=== PATIENT | female | born 1960 | race Caucasian/White ===

== ENCOUNTER → 2023-05-09 17:27 | Outpatient (REF) | payer OTHER, SELFPAY | LOC: MRI 17:27 | PROVIDERS: ATTENDING PHYSICIAN Internal Medicine Transplant Hepatology; FAMILY PHYSICIAN Family Medicine | DX: K74.69 Other cirrhosis of liver (principal) | CPT/HCPCS: 74183; A9581 ==

== ENCOUNTER → 2023-06-09 14:47 | Outpatient (REF) | payer OTHER, SELFPAY | LOC: DHCBC HW 14:47 | PROVIDERS: ATTENDING PHYSICIAN Internal Medicine; FAMILY PHYSICIAN Family Medicine | DX: R94.31 Abnormal electrocardiogram [ECG] [EKG] (principal) | CPT/HCPCS: 93306 ==

== ENCOUNTER → 2023-07-05 11:03 | Outpatient (REF) | payer OTHER, SELFPAY | LOC: DHCBC/DCA 11:03 | PROVIDERS: ATTENDING PHYSICIAN Internal Medicine; FAMILY PHYSICIAN Family Medicine | DX: R94.31 Abnormal electrocardiogram [ECG] [EKG] (principal) | CPT/HCPCS: 78452; 93017; A9500 ==

== ENCOUNTER → 2023-11-30 13:17 | Outpatient (REF) | payer OTHER, SELFPAY | LOC: HWWDC 13:17 | PROVIDERS: ATTENDING PHYSICIAN Obstetrics & Gynecology Gynecology; FAMILY PHYSICIAN Family Medicine | DX: Z12.31 Encounter for screening mammogram for malignant neoplasm of breast (principal) | CPT/HCPCS: 77063; 77067 ==

== ENCOUNTER → 2024-02-05 17:58 | Outpatient (REF) | payer OTHER, SELFPAY | LOC: MRI 17:58 | PROVIDERS: ATTENDING PHYSICIAN Internal Medicine Transplant Hepatology; FAMILY PHYSICIAN Family Medicine | DX: K74.69 Other cirrhosis of liver (principal) | CPT/HCPCS: 74183; A9581 ==

== ENCOUNTER 2024-06-17 06:19 | Day surgery (SDC) | payer OTHER, SELFPAY | END 2024-06-17 13:30 | disposition home or self-care (01) | LOC: GI 06:19 | PROVIDERS: ATTENDING PHYSICIAN Internal Medicine Gastroenterology | DX: K74.60 Unspecified cirrhosis of liver (principal) | CPT/HCPCS: 43239; 88305 ==

== ENCOUNTER 2024-12-02 09:44 | Inpatient (IN) | payer OTHER, SELFPAY ==
[2024-11-30 21:59] VITALS: BP 129/68
[2024-11-30 22:58] VITALS: BMI 19.9
[2024-11-30 23:04] VITALS: BP 109/59
[2024-11-30 23:11] LABS: Hematocrit 39.1 % (37.0-47.0); Hemoglobin 13.1 g/dL (12.0-16.0); Mean Corp Hgb Conc. 33.5 g/dL (33.0-37.0); Mean Corpuscular Volume 89.1 fL (81.0-99.0); Nucleated Red Blood Cells % 0 %; Platelet Count 173 10^3/uL (130-400); Red Cell Dist. Width 13.7 % (11.5-14.5)
[2024-11-30 23:29] LABS: ALT (SGPT) 18 U/L (0-35); Albumin 4.0 g/dl (3.5-5.0); Alkaline Phosphatase 87 U/L (38-126); Calcium 8.8 mg/dl (8.4-10.2); Carbon Dioxide 24 mmol/L (22-30); Chloride 110 mmol/L (98-107); Estimated Creatinine Clearance 57 ml/min; Glucose 102 mg/dl (70-99); Potassium 3.8 mmol/L (3.5-5.1); Sodium 140 mmol/L (135-145); eGFR > 60.00
[2024-11-30 23:39] LABS: AST (SGOT) 30 U/L (14-36); Blood Urea Nitrogen 17 mg/dl (7-17); Total Protein 7.0 g/dl (6.3-8.2)
[2024-11-30 23:45] LABS: Troponin I 0.017 ng/ml
[2024-12-01] VITALS (10 sets, daily range): BP systolic 91–112; BP diastolic 44–68; BMI 19.7
--- NOTE | 2024-12-01 00:35 | ED.GENMED ---
History of Present Illness
<JENNIFER Flores - Last Filed: 12/01/24 23:18>
General
Chief Complaint: Chest Pain
Source: patient
Exam Limitations: none
Time Seen by Provider: 11/30/24 23:22
Nursing documentation reviewed up to this point in time: agreed with
History of Present Illness
History of Present Illness:
Patient is a 64-year-old male past medical history of lung cancer with segmentectomy in 2013, liver failure, cirrhosis nonalcohol related(this occurred after surgery) presents for sudden shortness of breath and chest pain while sitting on her sofa
around 6 PM. She also had some abdominal pain and vomiting at that time. She does feel little short of breath and has pain with deep breath.
Past History
<JENNIFER Flores - Last Filed: 12/01/24 23:18>
Past History
ED Past Medical History: Cancer (Lung cancer, status post right upper lobe resection April 2013) and Other (Hepatitis)
ED Past Surgical History: Orthopedic and Other (Breast biopsy)
Social History
Tobacco: Former smoker
Alcohol: None
Drug: None
Personal:
Living: with family
Employment: Employed
Family History
Family History: Hypertension
Phy Exam
<JENNIFER Flores - Last Filed: 12/01/24 23:18>
General Physical Exam
General Presentation: no apparent distress
General age: appears stated age
General Skin: warm and dry
General Habitus: normal
General Hydration: appears well hydrated
Cardiovascular Exam
Cardiovascular Exam: regular rate/rhythm, no murmur and normal peripheral pulses
Pulmonary Exam
Pulmonary Exam: lungs clear and no respiratory distress
Neurological Exam
Neurological Exam: alert and oriented x3
Musculoskeletal Exam
Musculoskeletal Exam: full ROM
Skin Exam
Skin Exam: normal color and warm/dry
Psychiatric Exam
Psychiatric Exam: normal mood/affect
Scores
<JENNIFER Flores - Last Filed: 12/01/24 23:18>
Heart Score for Chest Pain Patients
STEMI patient?: Not applicable
Course
<JENNIFER Flores - Last Filed: 12/01/24 23:18>
Orders/Labs/Results
Orders:
Orders
11/30/24 22:03
EKG [Electrocardiogram (*1)] Urgent
Reason for Study: Chest Pain
EKG- Treatment ONCE
11/30/24 22:56
Cardiac Monitoring- Treatment ONCE
IV Insert/Care/Rem.- Treatment PRN
Chest [CR Chest - 2 Views ] Urgent
Comment:
Reason For Exam: chest pain/sob
O2 Therapy [RESP] Urgent
Titrate/Wean O2 to maintain O2 sat greater than (%): 90
Special Instructions: Maintain sats >/=90%
Pulse Ox/spot Check [RESP] Urgent
Quantity: 1
Special Instructions: ON ROOM AIR
11/30/24 22:59
Complete Blood Count/With Diff Urgent
Comprehensive Metabolic Panel Urgent
Lipase Urgent
Comment: ADD ON
Troponin I Urgent
12/01/24 00:45
CT Chest PE Study Urgent
Comment:
Reason For Exam: sob
0.9% Sodium Chloride 1000 ml [Nss] 1,000 ml IV BOLUS
12/01/24 01:00
EKG- Treatment ONCE
COVID-19 Antigen Urgent
Source: Nasal Swab
Influenza A+B Rapid Molecular Urgent
NEYDA Source: Nasal Swab
Specimen Description:
12/01/24 01:59
NT-proBNP Urgent
Comment: ADD ON
Troponin I Urgent
12/01/24 02:00
Electrocardiogram (*1) Urgent
Reason for Study: Chest Pain
12/01/24 03:34
Ketorolac [Toradol] 15 mg IV NOW STA
12/01/24 04:11
Admit/Transfer Patient As Directed
Co-Sign Provider:
Level of Care: Observation services
Assign to:: Telemetry
Physician / Group: Earle
Diagnosis: Hypoxemia
Reason for Telemetry: Chest Pain syndromes
Date to Stop Telemetry: 12/03/24
Time to Stop Telemetry: 11:00
12/01/24 04:12
Code Status As Directed
Resuscitation Status: Full Code
PRN Pain Medication Management As Directed
May give lesser potent ordered pain med per pt: Yes
preference::
Protocol:: Medication orders for pain may be administered in a
manner that supports deferring to patient preference
when the pt is:
- Requesting an ordered lesser potent pain medication.
Least to most potent pain medications are defined
as: acetaminophen < NSAID < tramadol < opioids
(morphine, oxycodone, hydromorphone).
- Requesting a lesser dose of the same medication IF
ORDERED.
- Requesting a less intrusive route of administration
if both routes are prescribed by the provider (PO <
IV).
12/01/24 04:17
CT Head W/o Iv Contrast Urgent
Comment:
Reason For Exam: Headache, Epistaxis, N/V
12/01/24 Breakfast
Regular
At Your Request: Full Participation
Does patient need a safe tray?: No
12/01/24 06:01
Acetaminophen [Tylenol] 650 mg PO Q4HPRN PRN
Albuterol Nebs [Ventolin Nebules] 2.5 mg INH R Q4HPRN PRN
Ketorolac [Toradol] 10 mg IV Q6HPRN PRN
12/01/24 06:01
Activity As Directed
Activity Level: Ambulate
EKG with chest pain [ECG as needed] As Directed
ECG as needed for:: Chest Pain
I/O [Intake/ Output] As Directed
Frequency: Per unit guidelines
Pneumatic Compression Sleeves As Directed
Type: Knee high
Vital Signs As Directed
Frequency: Per unit guidelines
Weight As Directed
Frequency: Daily
Oxygen Therapy [O2 Therapy] [RESP] Routine
Titrate/Wean O2 to maintain O2 sat greater than (%): 94
DX Deep Vein Thrombosis Video Routine
12/01/24 07:47
Glycohemoglobin (HgbA1c) Routine
12/02/24 06:00
Basic Metabolic Panel IN AM
Cardiovascular Evaluation IN AM
Complete Blood Count/No Diff IN AM
Troponin I IN AM
12/03/24 11:00
DC Protocol for Telemetry ONCE
Abnormal Lab Results
11/30/24
22:59
Absolute Lymphs (auto) 0.3 L 10^3/uL
(1.2-3.4)
Absolute Monos (auto) 0.0 L 10^3/uL
(0.1-0.6)
Neutrophils % 93.9 H %
(42.2-75.2)
Lymphocytes % 5.0 L %
(20.5-51.1)
Monocytes % 0.6 L %
(1.7-9.3)
Chloride 110 H mmol/L
(98-107)
Glucose 102 H mg/dl
(70-99)
11/30/24 22:59
11/30/24 22:59
Vital Signs
Initial and Last Documented VS:
Initial Vital Signs
Temp Pulse Resp BP Pulse Ox
97.9 F 101 20 129/68 93
11/30/24 21:59 11/30/24 21:59 11/30/24 21:59 11/30/24 21:59 11/30/24 21:59
Last Documented Vital Signs
Temp Pulse Resp BP Pulse Ox
98.3 F 92 20 109/58 95
12/01/24 19:32 12/01/24 19:32 12/01/24 19:32 12/01/24 19:32 12/01/24 19:32
Clinical Cytogeneticist consulted with Physician
Clinical Cytogeneticist consulted with physician?: Yes
Name of Physician Consulted: leslie
<Rip Tena, DO - Last Filed: 12/01/24 01:05>
Orders/Labs/Results
Orders:
Orders
11/30/24 22:03
EKG [Electrocardiogram (*1)] Urgent
Reason for Study: Chest Pain
EKG- Treatment ONCE
11/30/24 22:56
Cardiac Monitoring- Treatment ONCE
IV Insert/Care/Rem.- Treatment PRN
Chest [CR Chest - 2 Views ] Urgent
Comment:
Reason For Exam: chest pain/sob
O2 Therapy [RESP] Urgent
Titrate/Wean O2 to maintain O2 sat greater than (%): 90
Special Instructions: Maintain sats >/=90%
Pulse Ox/spot Check [RESP] Urgent
Quantity: 1
Special Instructions: ON ROOM AIR
11/30/24 22:59
Complete Blood Count/With Diff Urgent
Comprehensive Metabolic Panel Urgent
Lipase Urgent
Comment: ADD ON
Troponin I Urgent
12/01/24 00:45
CT Chest PE Study Urgent
Comment:
Reason For Exam: sob
0.9% Sodium Chloride 1000 ml [Nss] 1,000 ml IV BOLUS
12/01/24 01:00
EKG- Treatment ONCE
COVID-19 Antigen Urgent
Source: Nasal Swab
Influenza A+B Rapid Molecular Urgent
NEYDA Source: Nasal Swab
Specimen Description:
12/01/24 01:59
NT-proBNP Urgent
Comment: ADD ON
Troponin I Urgent
12/01/24 02:00
Electrocardiogram (*1) Urgent
Reason for Study: Chest Pain
12/01/24 03:34
Ketorolac [Toradol] 15 mg IV NOW STA
12/01/24 04:11
Admit/Transfer Patient As Directed
Co-Sign Provider:
Level of Care: Observation services
Assign to:: Telemetry
Physician / Group: Earle
Diagnosis: Hypoxemia
Reason for Telemetry: Chest Pain syndromes
Date to Stop Telemetry: 12/03/24
Time to Stop Telemetry: 11:00
12/01/24 04:12
Code Status As Directed
Resuscitation Status: Full Code
PRN Pain Medication Management As Directed
May give lesser potent ordered pain med per pt: Yes
preference::
Protocol:: Medication orders for pain may be administered in a
manner that supports deferring to patient preference
when the pt is:
- Requesting an ordered lesser potent pain medication.
Least to most potent pain medications are defined
as: acetaminophen < NSAID < tramadol < opioids
(morphine, oxycodone, hydromorphone).
- Requesting a lesser dose of the same medication IF
ORDERED.
- Requesting a less intrusive route of administration
if both routes are prescribed by the provider (PO <
IV).
12/01/24 04:17
CT Head W/o Iv Contrast Urgent
Comment:
Reason For Exam: Headache, Epistaxis, N/V
12/01/24 Breakfast
Regular
At Your Request: Full Participation
Does patient need a safe tray?: No
12/01/24 06:01
Acetaminophen [Tylenol] 650 mg PO Q4HPRN PRN
Albuterol Nebs [Ventolin Nebules] 2.5 mg INH R Q4HPRN PRN
Ketorolac [Toradol] 10 mg IV Q6HPRN PRN
12/01/24 06:01
Activity As Directed
Activity Level: Ambulate
EKG with chest pain [ECG as needed] As Directed
ECG as needed for:: Chest Pain
I/O [Intake/ Output] As Directed
Frequency: Per unit guidelines
Pneumatic Compression Sleeves As Directed
Type: Knee high
Vital Signs As Directed
Frequency: Per unit guidelines
Weight As Directed
Frequency: Daily
Oxygen Therapy [O2 Therapy] [RESP] Routine
Titrate/Wean O2 to maintain O2 sat greater than (%): 94
DX Deep Vein Thrombosis Video Routine
12/01/24 07:47
Glycohemoglobin (HgbA1c) Routine
12/02/24 06:00
Basic Metabolic Panel IN AM
Cardiovascular Evaluation IN AM
Complete Blood Count/No Diff IN AM
Troponin I IN AM
12/03/24 11:00
DC Protocol for Telemetry ONCE
Abnormal Lab Results
11/30/24
22:59
Absolute Lymphs (auto) 0.3 L 10^3/uL
(1.2-3.4)
Absolute Monos (auto) 0.0 L 10^3/uL
(0.1-0.6)
Neutrophils % 93.9 H %
(42.2-75.2)
Lymphocytes % 5.0 L %
(20.5-51.1)
Monocytes % 0.6 L %
(1.7-9.3)
Chloride 110 H mmol/L
(98-107)
Glucose 102 H mg/dl
(70-99)
11/30/24 22:59
11/30/24 22:59
Vital Signs
Initial and Last Documented VS:
Initial Vital Signs
Temp Pulse Resp BP Pulse Ox
97.9 F 101 20 129/68 93
11/30/24 21:59 11/30/24 21:59 11/30/24 21:59 11/30/24 21:59 11/30/24 21:59
Last Documented Vital Signs
Temp Pulse Resp BP Pulse Ox
98.3 F 92 20 109/58 95
12/01/24 19:32 12/01/24 19:32 12/01/24 19:32 12/01/24 19:32 12/01/24 19:32
<JENNIFER Flores - Last Filed: 12/01/24 23:18>
MDM/Problems Addressed
Differential Diagnosis Includes:
Not limited to pneumonia, PE, ACS
MDM/Problems Addressed:
As documented patient is a 64-year-old female with prior history of a lung cancer surgically removed previously presents for evaluation. Patient reports she was sitting and felt suddenly short of breath around 1800 and then had a little nausea
abdominal pain. Patient presents to the ER awake alert no acute distress minimally hypoxic however very well-appearing lungs are clear unremarkable labs. With prior history of cancer and shortness of breath CAT scan was done which was negative for
PE patient was monitored here and repeat troponin unremarkable. EKG with nonspecific ST segment changes.
On reexam patient continues to feel pain with deep breath, hypoxic as low as 89% on room air Case reviewed with ED physician would recommend admission will give Toradol for discomfort and placed on nasal cannula will likely need further evaluation
Chronic conditions affecting care:
History of lung cancer
<JENNIFER Flores - Last Filed: 12/01/24 23:18>
*Radiology
Radiology exam reviewed: radiology read reviewed
*Pulse Oximetry
SaO2: 89
Oxygen Mode of Delivery: Room air
Patient hypoxic: yes
*Critical Care Note
Total Time (30-74mins, 75-104mins- exclusive of procedures): Not Applicable
ED Attending Note
<JENNIFER Flores - Last Filed: 12/01/24 23:18>
-
Portions of this chart may have been created with voice recognition software.� Occasional wrong word or��sound alike� substitutions may have occurred due to the inherent limitations of voice recognition software.
<Rip Tena DO - Last Filed: 12/01/24 01:05>
ED Attending Note
Patient seen and examined by attending physician: Yes
I performed the substantive portion of visit, reviewed & personally made and approve the management plan that is documented in note by myself or PAULINO.: Yes
ED Attending Note:
I have seen and evaluated the patient with a [id number] encounter. I have spoken to the advance practicer provider and involved in the medical history, the physical exam, medical decision making.
Evaluation and management service: agree unless noted differently below.
Results interpretation: agree unless noted differently below.
Focused HPI: 64-year-old female presenting with sudden onset of chest pain and nausea vomiting. This occurred earlier in the evening. She now has a residual headache but states majority of her symptoms have improved
Physical exam: Sitting in bed comfortably. Abdomen soft nontender. Lungs clear
Medical Decision Making: Patient incidentally found to have pulse ox of 92%. Unsure about possible aspiration versus pulmonary embolism. Given her prior history of cancer, will obtain CT PE. Will obtain 2 troponin rule out as well
Discharge Plan
Departure
Patient Disposition: Admit
Date of Disposition: 12/01/24
Time of Disposition: 03:41
Admit to: Telemetry
Admit to doctor: hospitalist
Presentation/result/management discussed w/ accepting MD/DO: Hospitalist
Patient with high blood pressure during this ER visit?: No
Condition: Fair
Covid-19: Not Applicable
Discharge Problem:
Acute dyspnea, Hypoxia
Interventions
Interventions:
*Risk Screen - Suicide Last Done: 11/30/24 21:59
*General Assessment Last Done: 11/30/24 23:09
*Neglect/Abuse Screening Last Done: 11/30/24 21:59
*ED- Fall Risk Assessment Last Done: 11/30/24 23:09
*ED COVID-19 Vaccine History Last Done: 12/01/24 06:16
*Nursing Disposition Last Done: 12/01/24 06:07
ED- Cardiac Assessment Last Done: 11/30/24 23:09
Discharge Date and Time
Discharge Date/Time: 12/01/24 06:08
[2024-12-01] MEDS: NSS 1000 IV (01:04)
--- NOTE | 2024-12-01 01:07 | EDRN ---
Dr. Tena in to talk with patient and go over plan, patient resting comfortably, sent more labs and provided warm blanket.
[2024-12-01 01:27] LABS: COVID-19 Antigen Negative (Negative)
[2024-12-01 02:44] LABS: Troponin I < 0.012 ng/ml
[2024-12-01] MEDS: TORADOL 15 MG IV (03:38)
--- NOTE | 2024-12-01 04:14 | HPS.HSE ---
Family Physician
-
Family Physician: Mika Boone
Chief Complaint
-
Chest pain, SOB
History of Present Illness
Patient is a 64y F with PMH significant for lung cancer s/p resection and EBV hepatitis / cirrhosis who presents to ED complaining of chest pain, dyspnea and N/V. Patient states that she has been feeling well lately. Today she visited with
friends with her , ate dinner and was in the hot tub. She and her returned home and were sitting on the couch when she developed sudden onset of symptoms around 6 PM. Patient reports development of pain of the entire front of her
body - chest and abdomen. She felt short of breath. She had N/V x multiple episodes. Patient reports severe headache as well. She noted pain in the back with deep breathing.
They presented to the ED for evaluation. Patient states that she developed a nose bleed while in the waiting room - this has since resolved.
Patient was given Toradol in the ED and is currently resting comfortably. She continues to complain of pain in the back with deep inspiration. She feels somewhat SOB. Headache is improved but not resolved.
Patient denies any prior h/o similar symptoms.
She does state that she started taking Azo today for symptoms of urinary burning. No other recent symptoms/ complaints prior to tonight's events.
feels well. No other known sick contacts.
Medical History
Past Medical History
Past Medical History: Reports Other
Additional Past Medical History:
EBV Hepatitis
Cirrhosis
Lung Cancer s/p Resection
DDD
Past Surgical History: Reports Other
Additional Past Surgical History:
Right Upper Lobectomy
Breast Augmentation
Lumpectomy
Foot Surgery
Social History
Tobacco: Former Smoker (Quit smoking > 10 years ago. > 30 pack years total use.)
Alcohol: None
Drug: None
Personal:
Living: With Family
Family History
Family History: Not pertinent
Allergies / Home Medications
Allergies reflects when Allergies were last updated in [employer].
Home Medications with original date entered in [employer]
Allergy/Medication List:
Allergies
Allergy/AdvReac Type Severity Reaction Status Date / Time
No Known Drug Allergies Allergy - Verified 11/30/24 21:58
cats Allergy itching, Uncoded 11/30/24 21:58
sneezing,
tightness
in chest
seasonal Allergy itching Uncoded 11/30/24 21:58
eyes,
sneezing
Home Medications
multivitamin 1 tab PO DAILY 12/01/24
omega 5-ybm-swn-fish oil 1,000 mg (120 mg-180 mg) capsule (Fish Oil) 2 cap PO DAILY 12/01/24
Review of Systems
-
History Source: Patient
A 12 point ROS was completed and negative except as noted: Yes
Constitutional: Reports Fever, Fatigue and Chills
EENT: Reports Other (Bloody nose); Denies Sore Throat
Respiratory: Reports Trouble Breathing and Other (Pleuritic pain); Denies Cough
Cardiac: Reports Chest Pain; Denies Diaphoresis, Palpitations or Syncope
Abdomen/GI: Reports Abdominal Pain, Nausea and Vomiting; Denies Diarrhea, Bloody Stools or Black Stools
: Reports Dysuria and Frequency; Denies Flank Pain or Incontinence
Musculoskeletal: Denies Joint Pain or Edema
Neurological: Reports Headache; Denies Dizzy
Psych: Denies Depression or Anxiety
Physical Exam
Vital Signs
Vital Signs
Temp Pulse Resp BP Pulse Ox
97.9 F 86 22 112/56 89
11/30/24 21:59 12/01/24 03:00 12/01/24 02:30 12/01/24 02:00 12/01/24 03:44
Physical Exam
General: Other (64y F in no acute distress.)
HEENT: Moist mucous membranes and PERRLA
Respiratory: Clear; No Wheezes, Rales or Rhonchi
Cardiac: S1/S2 and Regular Rhythm; No Murmur
GI: Soft, Non Tender, Non Distended and Normal Bowel Sounds
Musculoskeletal: No Clubbing, No Cyanosis and No Edema
Neuro: AO x 3 and Nonfocal/grossly intact
Laboratory Results
-
11/30/24 22:59
11/30/24 22:59
Laboratory Results
Total Bilirubin 0.5 mg/dl (0.2-1.3) 11/30/24 22:59
AST 30 U/L (14-36) 11/30/24:59
ALT 18 U/L (0-35) 11/30/24 22:59
Alkaline Phosphatase 87 U/L (38-126) 11/30/24 22:59
Troponin I < 0.012 ng/ml D 12/01/24 01:59
Impression/Plan
-
A/P: Patient is a 64y F with PMH significant for lung cancer s/p lobectomy who presents to ED complaining of abrupt onset of headache, N/V, SOB and chills this evening.
Acute Hypoxemic Respiratory Insufficiency
Pleurisy
Possible Viral Syndrome
- Observe overnight for further evaluation and treatment.
- Check CT head now with abrupt onset of headache, N/V, epistaxis, etc.
- Evaluation thus far including labs, imaging studies, viral assays, etc have been unremarkable.
- COVID / flu negative. CXR / CTA Chest unremarkable.
- Observe off of any abx for now.
- Follow temperature curve. Monitor for any new / recurrent symptoms.
- O2 support as needed. Nebs PRN with prior h/o smoking, lung cancer, etc.
- Toradol PRN for pleuritic pain.
- Troponin unremarkable x 2 thus far. 3rd set in AM. Doubt ACS.
EBV Hepatitis
Cirrhosis
- Not on any chronic medication / treatment.
- No active / chronic symptoms.
DVT Prophylaxis: SCDs
Code Status: Full
[2024-12-01 07:58] LABS: Lipase 108 U/L (23-300)
--- NOTE | 2024-12-01 08:25 | W.PN.HOSP.TC ---
Addendum entered and electronically signed by Johnnie Valentine MD 12/01/24 14:35:
Patient previosuly did not complain of urinary symptoms, now, apparently, confirmed to RN that she was taking Pyridium. Most likely patient with UTI. As per US - uncomplicated. Pending Ucx
Addendum entered and electronically signed by Johnnie Valentine MD 12/01/24 11:41:
#UTI
ceftriaxone pending Ucx
US renal to exclude hydronephrosis and nephrolithiasis
Original Note:
Today's Communication/Plan
-
see PN
Assessment / Plan
Assessment / Plan
64yo F with PMHx of lung nodule s/p wedge resection, possible autoimmune hepatitis vs EBV hepatitis with liver cirrhosis, family Hx of autoimmune disease came with sudden onset of SOB with chest pain later with chills and nausea and vomiting. Also
had episode of epistaxis in ED. Was placed on NC due to borderline low O2
A/P:
#Possible early sepsis with generalized symptoms, most liekly 2/2 b/l pneumonia cannot exclude UTI
CTA chest prelim without pulmonary embolism
Check UA
Check strep pneumonia and legionella urinary Ag
Plan to start Abx for CAP after UA
If persistently hypoxic - pulm consult
Check LE US for DVT
lipase WNL
check ProBNP - if elevated - Echo
#Chest pain
no TWI or ST changes on EKG
Trop unremarkable - cont trend
#Liver cirrhosis in compensation
#Hx of EBV
#Hx of autoimmune hepatitis
cont home meds
#Epistaxis
single episode
check coagulation panel
DVT ppx SCDs
Full code
I have spent at least 52min reviewing chart, rtest results, providign direct patient care
Anticipated Discharge: 24 - 48 hours
Subjective/Interval History
-
Date of Service: December 01, 2024
Objective Data
-
Labs:
Laboratory Results
11/30/24
22:59
WBC 6.6
Hgb 13.1
Hct 39.1
Plt Count 173
Sodium 140
Potassium 3.8
Chloride 110 H
Carbon Dioxide 24
BUN 17
Creatinine 1.0
Glucose 102 H
Calcium 8.8
Total Bilirubin 0.5
AST 30
ALT 18
Alkaline Phosphatase 87
Vital Signs:
Vital Signs
Temp Pulse Resp BP Pulse Ox
98.1 F 71 18 93/44 94
12/01/24 08:04 12/01/24 08:04 12/01/24 08:04 12/01/24 08:04 12/01/24 08:04
Review of Systems
-
History Source: Patient
All other systems: Reviewed and negative
Physical Exam
-
General: No Apparent Distress
HEENT: Normocephalic
Respiratory: Clear to Auscultation; Negative Wheezes or Crackles
Cardiac: Regular Rhythm
GI: Soft, Nontender and Nondistended
Musculoskeletal: No Clubbing, No Cyanosis and No Edema
Neuro: Awake, Alert, Oriented and AO x 3
Psych: Calm
[2024-12-01 08:57] LABS: INR 1.14; PT 14.9 Sec (11.4-14.6)
[2024-12-01 08:58] LABS: APTT 29.9 Sec (23.4-35.0)
[2024-12-01 09:17] LABS: Troponin I < 0.012 ng/ml
[2024-12-01 11:16] LABS: Urine Character Clear (Clear)
[2024-12-01 11:22] LABS: Urine White Cell 30-40 /HPF (0-5)
[2024-12-01 12:04] LABS: Glycohemoglobin (HgbA1c) 5.0 % (4.0-5.6)
[2024-12-01] MEDS: ROCEPHIN 1000 MG IV (12:34)
[2024-12-01] MEDS: STERILE WATER FOR INJECTION 10 ML IV (12:34)
[2024-12-01] MEDS: VIBRAMYCIN 100 MG PO ×2 (12:34→19:03)
[2024-12-01] MEDS: TORADOL 10 MG IV (14:45)
[2024-12-01] MEDS: BENADRYL 25 MG PO (23:09)
[2024-12-02 03:24] VITALS: BP 129/66
[2024-12-02] MEDS: TYLENOL 650 MG PO (05:41)
[2024-12-02 06:07] LABS: Hematocrit 31.9 % (37.0-47.0); Hemoglobin 10.9 g/dL (12.0-16.0); Mean Corp Hgb Conc. 34.2 g/dL (33.0-37.0); Mean Corpuscular Volume 88.9 fL (81.0-99.0); Platelet Count 145 10^3/uL (130-400); Red Cell Dist. Width 13.7 % (11.5-14.5)
[2024-12-02 06:30] LABS: Blood Urea Nitrogen 20 mg/dl (7-17); Calcium 8.7 mg/dl (8.4-10.2); Carbon Dioxide 22 mmol/L (22-30); Chloride 114 mmol/L (98-107); Estimated Creatinine Clearance 71 ml/min; Glucose 94 mg/dl (70-99); HDL Cholesterol 46 mg/dl; LDL Cholesterol, Calculated 106 mg/dl; Potassium 3.7 mmol/L (3.5-5.1); Sodium 139 mmol/L (135-145); Very Low Density Lipoprotein 21 mg/dl (0-30); eGFR > 60.00
[2024-12-02 06:40] LABS: Troponin I < 0.012 ng/ml
[2024-12-02] MEDS: VIBRAMYCIN 100 MG PO (07:33)
[2024-12-02] MEDS: TORADOL 10 MG IV (07:35)
[2024-12-02 08:12] VITALS: BP 129/56
--- NOTE | 2024-12-02 09:40 | W.PN.HOSP.TC ---
Today's Communication/Plan
-
Discharge today
Assessment / Plan
Assessment / Plan
64yo F with PMHx of lung nodule s/p wedge resection, possible autoimmune hepatitis vs EBV hepatitis with liver cirrhosis, family Hx of autoimmune disease came with sudden onset of SOB with chest pain later with chills and nausea and vomiting. Also
had episode of epistaxis in ED. Was placed on NC due to borderline low O2
A/P:
#Pneumonia
#Acute urinary tract infection
#Transient hypoxia
CTA chest prelim without pulmonary embolism, does show pneumonia
Urine analysis also consistent with UTI
Lower extremity Dopplers negative for DVT
Hypoxia resolved, shortness of breath resolved
Currently on IV Rocephin and doxycycline
Medically stable for discharge on cefdinir and doxycycline to complete a 7-day course
Follow-up with PCP in 1 week
#Chest pain
Suspect pleuritic
No TWI or ST changes on EKG
Serial troponins negative
#Liver cirrhosis in compensation
#Hx of EBV
#Hx of autoimmune hepatitis
Continue home medication
#Epistaxis
Single occurrence, resolved
DVT prophylaxis�SCDs
Full code
Physical Exam
General: No acute distress
HEENT: Normocephalic, Atraumatic, EOMI, MMM
Respiratory: Clear to Auscultation bilaterally
Cardiac: Normal S1/S2, Regular Rate and Rhythm
GI: Soft, Nontender, Nondistended, Normal Bowel Sounds
Extremities: No Clubbing, Cyanosis, or Edema
Neuro: Nonfocal/Grossly Intact
Psych: Calm, Cooperative
Anticipated Discharge: Today
Subjective/Interval History
-
Date of Service: December 02, 2024
Patient reports her breathing is back to normal. Her dysuria has improved dramatically. No fever, no vomiting.
Objective Data
-
Labs:
Laboratory Results
12/02/24
05:48
WBC 7.7
Hgb 10.9 L
Hct 31.9 L
Plt Count 145
Sodium 139
Potassium 3.7
Chloride 114 H
Carbon Dioxide 22
BUN 20 H
Creatinine 0.8
Glucose 94
Calcium 8.7
Vital Signs:
Vital Signs
Temp Pulse Resp BP Pulse Ox
97.6 F 73 16 129/56 93
12/02/24 08:12 12/02/24 08:12 12/02/24 08:12 12/02/24 08:12 12/02/24 08:12
I&O
12/01/24 12/02/24 12/03/24
06:59 06:59 06:59
Intake Total 1080 / 1080
Balance 1080 / 1080
[2024-12-02] MEDS: ROCEPHIN 1000 MG IV (09:44)
[2024-12-02] MEDS: STERILE WATER FOR INJECTION 10 ML IV (09:46)
[2024-12-02 11:29] VITALS: BP 111/60
--- NOTE | 2024-12-02 12:17 | W.DCSUMMARY ---
Discharge Summary
Discharge Data
Date of Admission: 12/01/24
Date of Discharge: 12/02/24
-
Pending Results: No
Hospital Course
Discharge diagnosis:
Pneumonia
Transient hypoxia
Acute urinary tract infection
Pleuritic chest pain
Liver cirrhosis and compensation
History of autoimmune hepatitis
History of Sean-Beltran virus
Chest CT:
1. Small to moderate-sized airspace consolidation in the basilar left lower lobe and mild subpleural airspace opacity in the basilar right lower lobe most suggestive of BILATERAL LOWER LOBE PNEUMONIA (left greater than right). A large amount of
dependent subsegmental atelectasis is an alternative diagnostic possibility.
2. Previous right upper lobectomy.
3. Mild bilateral hilar and mediastinal lymphadenopathy which appears new from 04/23/2018.
4. Bilateral subpectoral breast implants in place.
LE US:
No sonographic evidence for lower extremity venous thrombosis.
Hospital course:
64-year-old female with a past medical history of lung nodule s/p wedge resection, possible autoimmune hepatitis vs EBV hepatitis with liver cirrhosis, family hx of autoimmune disease who was admitted for pneumonia, transient hypoxia, and acute
urinary tract infection. Patient had a chest CT which confirmed pneumonia. She was mildly hypoxic transiently, which resolved. She also had a urinary tract infection. She was treated with IV Rocephin and oral doxycycline. Her dyspnea resolved.
Her dysuria improved. She is medically stable for discharge on cefdinir and doxycycline to complete a 7-day course. She needs to follow-up with her primary care provider in 1 week.
Disposition: Home self-care
Discharge planning: Required 36 minutes
Discharge Plan
-
Patient Disposition: Home (Routine Discharge)
Discharge Diagnosis/Procedures: Pneumonia, urinary tract infection
Condition: Good
Diet: Regular
Activity: As tolerated
Driving Restrictions: As prior to admission
Referrals:
Mika Boone DO [Family Provider, [facility]] - in one week
Prescriptions:
New
doxycycline hyclate 100 mg Capsule
100 mg PO Q12 5 Days Qty: 10 0RF
cefdinir 300 mg capsule
300 mg PO BID 5 Days Qty: 10 0RF
Continued
multivitamin Tablet
1 tab PO DAILY
omega 2-[id number]-[id number]-fish oil [Fish Oil] 1,000 (120-180) mg Capsule
2 cap PO DAILY
Discharge Orders:
Discharge Patient (As Directed); Ordered 12/02/24
Ordered By: Dwayne Freeman
Discharge Date and Time
Discharge Date/Time: 12/02/24 14:59
Print Language: FRENCH
--- NOTE | 2024-12-02 14:30 | CM ---
Received notification that patient is cleared for discharge. Met with patient to obtain information for assessment. Patient stated that she lives with her spouse in a two story home with no steps to enter. She described herself as independent with
all of her ADLs, personal care, dressing and bathing. 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 Patient drives and can get to her appointments and can do all of her own shopping. 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 She denied any DME. She has not had VN. She has not been to a SNF in the past.
Patient has a prescription plan and uses, [facility] in [place] for all of her medications.
Her PCP is, Mika Boone.
Reviewed OBS status with patient. She expressed understanding.
Patient's son at bedside to transport patient home.
Plan: Case management will continue to follow and assist with discharge planning. Home.
== END 2024-12-02 14:59 | disposition home or self-care (01) | DRG 689 ==
LOC: 4 WEST ACU 09:44
PROVIDERS: Internal Medicine; Nurse Practitioner; ADMITTING PHYSICIAN Hospitalist; ATTENDING PHYSICIAN Family Medicine; EMERGENCY PHYSICIAN Student in an Organized Health Care Education/Training Program; FAMILY PHYSICIAN Family Medicine
DX: N39.0 Urinary tract infection, site not specified (principal); J18.9 Pneumonia, unspecified organism; B27.09 Gammaherpesviral mononucleosis with other complications; K74.60 Unspecified cirrhosis of liver; R09.02 Hypoxemia; K75.4 Autoimmune hepatitis; Z11.52 Encounter for screening for COVID-19; Z79.899 Other long term (current) drug therapy; Z87.891 Personal history of nicotine dependence
CPT/HCPCS: 70450; 71046; 71275; 76775; 80048; 80053; 80061; 81003; 81015; 83036; 83690; 83880; 84484; 85025; 85027; 85610; 85730; 87077; 87086; 87186; 87449; 87502; 87811; 87899; 93005; 93970; 96361; 96374; 99285; Q9967